=== PATIENT | male | born 1955 | race Caucasian/White ===

== ENCOUNTER → 2024-11-21 | Outpatient (CLI) | payer MEDICARE, SELFPAY ==
--- NOTE | 2024-11-21 09:30 | PET_ITS ---
EXAMINATION: Ga 68 PSMA ? INDICATIONS: 69-year-old male with a history of primary prostate carcinoma, presenting for initial staging examination. ? COMPARISON EXAMINATION: ? INDEX LESION SIZE PROMISE SCORE SUV INTERPRETATION Prostate 49.3 mm 3 52.94 Fulfills quantitative criteria for viable neoplasm ? Bilateral lower hemipelvis 9.6 mm, largest 3 16.4 Fulfills quantitative criteria for viable neoplasm ? TECHNIQUE: Following the intravenous administration of 9.48 mCi of Ga 68 PSMA via the right antecubital fossa, multiplanar image acquisitions of the head, neck, chest, abdomen and pelvis to the level of the midthigh, obtained at 73 minutes post tracer distribution reveal: ? The examination was interpreted using the EANM (Teodoro et al., Journal of Nuclear Medicine Molecular Imaging 44:1622, 2017) and PROMISE (Anthony et al., Journal of Nuclear Medicine 59:469, 2018) interpretive criteria. ? HEIGHT:?? 70 inches WEIGHT:?? 150 pounds ? PSMA expression score PROMISE criteria: High (3): SUV > parotid-salivary gland, intermediate (2): SUV > liver, low (1): > blood pool, < liver, (0): < blood pool. ? SUV reference values: Parotid glands 27.60. Normal liver parenchyma 8.2. Blood pool 1.9. ? FINDINGS: ? HEAD/NECK:? Symmetric radiopharmaceutical concentration is defined in the bilateral parotid and submandibular glands. Physiologic tracer uptake is noted in the nasal cavity. ? There is no evidence of abnormal increased tracer uptake within the context of the cranial vault. ? CHEST:? There is no quantitative scintigraphic evidence of abnormal increased radiopharmaceutical concentration within the context of the bilateral hemithorax pulmonary parenchyma, right and left hemithorax at the pleural interface, mediastinal structures, and left-right thoracic perihilum. ? CT of the chest demonstrates the following anatomic characteristics: Bilateral axillary soft tissue densities are nontracer avid. There are no parenchymal densities-nodules defined in the right and left hemithorax with quantitatively significant increased FDG uptake. ? ABDOMEN/PELVIS:? Increased tracer uptake noted in the prostate gland. The calculated standard uptake value is 52.94. The PROMISE Score is 3. The maximal axial diameter of the metabolic abnormality is 49.3 mm. Facilitated radiopharmaceutical is observed in the bilateral lower hemipelvis associated with the iliacus muscle to the right of midline and in the external iliac lymph node basin to the left of midline. The calculated standard uptake value is 16.4. The PROMISE Score is 3. The largest metabolic, morphologic abnormality is 9.6 mm. Uniform, homogeneous radiopharmaceutical concentration is defined in the hepatic and splenic parenchyma, visualization of the bilateral renal units, urinary bladder, and visualized intestinal tract. ? CT of the abdomen and pelvis is remarkable for the following: Calcified phlebolith formation is noted in the bilateral lower hemipelvis.? A fat containing paraumbilical midline hernia is demonstrated ? SKELETAL:? There is no evidence of quantitatively significant enhanced radiopharmaceutical metabolism on meticulous inspection of the appendicular and axial skeletal structures. ? Degenerative changes defined in the thoracic and lumbar spine demonstrate no evidence of increased glucose metabolism. There are no sclerotic, mixed sclerotic-lytic, or primarily lytic changes defined in the axial skeletal structures with evidence of increased FDG uptake. ? PET/PET/CT Tumor Base -Thigh Init IMPRESSION: 1. ABNORMAL EXAMINATION INDICATIVE OF MALIGNANT-VIABLE NEOPLASM. 2. Increased tracer uptake noted in the prostate gland fulfills quantitative criteria for malignant transformation. 3. Facilitated radiotracer seen in the bilateral lower hemipelvis fulfills quantitative criteria for viable metastatic neoplastic disease. (Eilai et al., Journal of Nuclear Medicine 59:469, 2018). Electronic Signature Farhad Moss D.O. Accurate Quantification of SUVs and standardized PROMISE scores for this report are calculated using the exclusive [employer], ([place] Patent No. [id number] [phone] patent [phone] ). Standardization and correction of the FDG SUV metric exclusively available with [employer] intellectual property, allow for vendor non-specific objective quantitative sequential FDG PET-CT comparison and otherwise unobtainable optimization of the sensitivity and specificity of the examination. [email or web address] Electronically Signed: Farhad Moss DO at 22:01 EST ,
== END | disposition home or self-care (01) ==
PROVIDERS: Referring Provider Urology; Visit Provider Urology
DX: C61 Malignant neoplasm of prostate (principal)
CPT/HCPCS: 78815; A9595